=== PATIENT | female | born 1965 | race Two or more races ===

== ENCOUNTER 2021-07-14 08:50 | Inpatient (IN) | payer MEDICAID, OTHER ==
[~2021-07-14] VITALS: Ht 154.9 cm; Wt 65.9 kg
[2021-07-14 09:32] LABS: Urine Bacteria NONE SEEN /hpf (None Seen); Urine Blood Negative /uL (Negative); Urine Specific Gravity 1.037 (1.001-1.035); Urine WBC 1 /hpf (0 - 5)
[2021-07-14] MEDS ORDERED: SODIUM CHLORIDE 0.9% 1,000 ML IV ONE (11:00)
[2021-07-14] MEDS ORDERED: SODIUM CHLORIDE 0.9% 500 ML IVB ONE (11:00)
[2021-07-14] MEDS ORDERED: HYDROmorphone HCL 2 MG/ML VL/or syr IV ONE ×2 (11:00→13:45)
[2021-07-14 11:17] LABS: Potassium 3.4 mmol/L (3.5-5.1)
[2021-07-14 11:21] LABS: Basophils # (auto) 0 10 ^3/uL (0-0.2); Basophils % (auto) 0.3 % (0.0-2.0); Eosinophils # (auto) 0 10 ^3/uL (0-0.8); Hematocrit 43.8 % (36.0-46.0); Lymphocytes # (auto) 1.6 10 ^3/uL (0.4-5.4); Lymphocytes % (auto) 14.7 % (10.0-50.0); Mean Corpuscular Hemoglobin 29.3 pg (28.0-32.0); Mean Corpuscular Hgb Conc. 34.3 g/dL (32.0-36.0); Mean Corpuscular Volume 85.3 fL (80.0-100.0); Monocytes # (auto) 0.5 10 ^3/uL (0-1.3); Monocytes % (auto) 4.8 % (0.0-12.0); Neutrophils # (auto) 8.8 10 ^3/uL (1.6-8.6); Neutrophils % (auto) 80.2 % (37.0-80.0); Nucleated Red Blood Cells % 0.1 %; Red Blood Cells 5.13 10^6/uL (4.0-5.20); Red Cell Distribution Width 12.9 % (11.8-14.3)
[2021-07-14 11:24] LABS: Albumin 3.2 g/dL (3.4-5.0); BUN/Creatinine Ratio 18.6; Calcium 9.5 mg/dL (8.5-10.1); Total Protein 8.2 g/dL (6.4-8.2)
[2021-07-14] MEDS: PROMETHAZINE HCL 25 MG/ML 1ML IV PRN (11:34)
[2021-07-14] MEDS ORDERED: IOHEXOL 300 MG/ML 100ML BOTTLE IJ ONE (11:40)
[2021-07-14 12:02] LABS: Partial Thromboplastin Time 28.1 sec (23.6-33.0)
[2021-07-14 12:06] LABS: Magnesium 2.1 mg/dL (1.6-2.6)
[2021-07-14] MEDS ORDERED: ONDANSETRON HCL 4 MG/2 ML VIAL IV ONE (13:45)
[2021-07-14] MEDS ORDERED: InsuLIN REG 1unit/0.01ml Soln (100units/ml) IV ONE (14:30)
[2021-07-14] MEDS: POTASSIUM CHL 20MEQ/100ML 100 ML IV SCH ×2 (14:44→16:30)
[2021-07-14] MEDS ORDERED: SODIUM CHLORIDE 0.9% 1,000 ML IV SCH (15:15)
[2021-07-14] MEDS ORDERED: DEXTROSE (50%) 50ML SYRG IV PRN (15:15)
[2021-07-14] MEDS ORDERED: NITROGLYCERIN 0.4 MG SL TAB SL PRN (15:15)
[2021-07-14] MEDS ORDERED: LACTATED RINGER'S 2,000 ML IV ONE (15:15)
[2021-07-14] MEDS ORDERED: MORPHINE SULFATE INJ 2 MG/ml SYRG IV PRN (15:15)
[2021-07-14] MEDS ORDERED: cefTRIAXone 1GM/50ML D5W 50 ML IV ONE (15:45)
[2021-07-14] MEDS ORDERED: BUPIVACAINE W/ EPINEPH 0.25% INJ 50ML MDV ONE (15:48)
[2021-07-14] MEDS ORDERED: SUCCINYLCHOLINE CHLORIDE 20 MG/ML 10ML VIAL IV ONE (16:05)
[2021-07-14] MEDS ORDERED: ROCURONIUM 10MG/ML 10ML VIAL IV ONE (16:07)
[2021-07-14] MEDS ORDERED: fentaNYL CITRATE 100 MCG/2 ML VL ONE (16:07)
[2021-07-14] MEDS ORDERED: MIDAZOLAM HCL 2MG/2ML 2ml VIAL (1mg/ml) ONE (16:07)
[2021-07-14] MEDS ORDERED: LACTULOSE 20Gm/30ML SOLN PO PRN (16:30)
[2021-07-14] MEDS ORDERED: hydrALAZINE HCL 20 MG/ML VL IV PRN (16:30)
[2021-07-14] MEDS ORDERED: LORazepam 0.5 MG TAB PO PRN (16:30)
[2021-07-14] MEDS ORDERED: ACETAMINOPHEN 325 MG TAB PO PRN (16:30)
[2021-07-14] MEDS ORDERED: DOCUSATE SOD 100 MG CAP PO PRN (16:30)
[2021-07-14] MEDS ORDERED: PANTOPRAZOLE 40 MG/10 ML VIAL INJ IV ONE (16:30)
[2021-07-14] MEDS ORDERED: PROPOFOL 10 MG/ML 20 ML IV ONE (17:00)
[2021-07-14] MEDS ORDERED: DexAMETHasone SOD PHOS 10MG/1ML VIAL INJ ONE (17:00)
[2021-07-14] MEDS ORDERED: LIDOCAINE 2% (LOCAL ANESTH.) PF 5ml SDV ONE (17:01)
[2021-07-14] MEDS ORDERED: METOCLOPRAMIDE HCL 5MG/ml INJ 2ml VIAL ONE (17:01)
[2021-07-14] MEDS ORDERED: NEOSTIGMINE 1 MG/ML INJ (10mg/10ML VIAL) ONE (17:01)
[2021-07-14] MEDS ORDERED: GLYCOPYRROLATE 0.2 MG/ML 1ML VIAL ONE (17:01)
[2021-07-14] MEDS ORDERED: ceFAZolin 1GM VL ONE (17:49)
[2021-07-14] MEDS ORDERED: ONDANSETRON HCL 4 MG/2 ML VIAL ONE (18:37)
[2021-07-14] MEDS: InsuLIN REG 1unit/0.01ml Soln (100units/ml) SC SCH ×2 (18:45→23:23)
[2021-07-14] MEDS ORDERED: ONDANSETRON HCL 4 MG/2 ML VIAL IV PRN (18:45)
[2021-07-14] MEDS ORDERED: ACCU-CHEK COMFORT CURVE STRIP VI ONE (18:45)
[2021-07-14] MEDS: ACCU-CHEK COMFORT CURVE STRIP VI SCH (18:45)
[2021-07-14] MEDS ORDERED: METOCLOPRAMIDE HCL 5MG/ml INJ 2ml VIAL IV PRN (18:45)
[2021-07-14] MEDS ORDERED: HYDROmorphone HCL 2 MG/ML VL/or syr IV PRN (18:45)
[2021-07-14] MEDS ORDERED: HYDROmorphone HCL 2 MG/ML VL/or syr ONE (18:47)
[2021-07-14] MEDS: metroNIDAZOLE 500MG/100ML 100 ML IV SCH (21:30)
[2021-07-14] MEDS: SODIUM CHLORIDE 0.9% 1,000 ML IV SCH (21:31)
[2021-07-14] MEDS: POTASSIUM CHL 20 Meq TABLET PO SCH (22:00)
[2021-07-14] MEDS: ATORVASTATIN 20 MG TAB PO SCH (22:00)
[2021-07-14 22:02] VITALS: BP 117/70
[2021-07-14] MEDS: INSULIN LANTUS (GLARGINE) 1 /0.01ml (100units/ml) SC SCH (23:22)
[2021-07-14 23:51] LABS: BUN/Creatinine Ratio 15.7; Calcium 8.6 mg/dL (8.5-10.1); Potassium 4.9 mmol/L (3.5-5.1)
[2021-07-15 05:00] VITALS: BP 126/76
[2021-07-15] MEDS: metroNIDAZOLE 500MG/100ML 100 ML IV SCH ×3 (05:26→21:46)
[2021-07-15] MEDS: ACCU-CHEK COMFORT CURVE STRIP VI SCH ×5 (06:13→23:28)
[2021-07-15] MEDS: InsuLIN REG 1unit/0.01ml Soln (100units/ml) SC SCH ×4 (06:23→23:28)
[2021-07-15] MEDS: INSULIN LANTUS (GLARGINE) 1 /0.01ml (100units/ml) SC SCH ×2 (06:24→23:27)
[2021-07-15] MEDS: SODIUM CHLORIDE 0.9% 1,000 ML IV SCH ×2 (06:48→21:06)
[2021-07-15] MEDS: cefTRIAXone 1GM/50ML D5W 50 ML IV SCH (08:22)
[2021-07-15 08:26] LABS: Basophils # (auto) 0 10 ^3/uL (0-0.2); Basophils % (auto) 0.2 % (0.0-2.0); Eosinophils # (auto) 0 10 ^3/uL (0-0.8); Hematocrit 40.1 % (36.0-46.0); Hemoglobin 13.7 g/dL (12.2-16.2); Lymphocytes # (auto) 1.1 10 ^3/uL (0.4-5.4); Lymphocytes % (auto) 6.9 % (10.0-50.0); Mean Corpuscular Hemoglobin 28.8 pg (28.0-32.0); Mean Corpuscular Hgb Conc. 34.2 g/dL (32.0-36.0); Mean Corpuscular Volume 84.2 fL (80.0-100.0); Monocytes # (auto) 0.7 10 ^3/uL (0-1.3); Monocytes % (auto) 4.6 % (0.0-12.0); Neutrophils # (auto) 13.9 10 ^3/uL (1.6-8.6); Neutrophils % (auto) 88.3 % (37.0-80.0); Nucleated Red Blood Cells % 0.1 %; Red Blood Cells 4.75 10^6/uL (4.0-5.20); Red Cell Distribution Width 13.4 % (11.8-14.3); White Blood Cell 15.7 10^3/uL (4.4-10.8)
[2021-07-15 08:41] LABS: Calcium 9.1 mg/dL (8.5-10.1); Chloride 115 mmol/L (98-107); Sodium 142 mmol/L (136-145)
[2021-07-15 08:51] LABS: Alanine Aminotransferase 18 U/L (13-56); Albumin 2.3 g/dL (3.4-5.0); Alkaline Phosphatase 141 U/L (45-117); Anion Gap 9 (5-15); Aspartate Aminotransferase 14 U/L (15-37); BUN/Creatinine Ratio 19.8; Bilirubin, Total 0.3 mg/dL (0.2-1.0); Blood Urea Nitrogen 17 mg/dL (7-18); Carbon Dioxide 18 mmol/L (21-32); Cholesterol 105 mg/dL (< 200); Creatine Kinase IFCC 71 U/L (26-192); GFR African American 87 mL/min; GFR Non-African American 72 mL/min; Glucose 269 mg/dL (74-106); HDL Cholesterol 64 mg/dL (40-59); LDL Cholesterol 33 mg/dL (< 100); Lipase 18 U/L (73-393); Phosphorus 1.6 mg/dL (2.5-4.90); Total Protein 7.2 g/dL (6.4-8.2); Triglycerides 41 mg/dL (< 150); Uric Acid 5.6 mg/dL (2.6-6.0)
[2021-07-15 08:57] LABS: CRP High Sensitivity > 19 mg/dL (< 0.3)
[2021-07-15 09:03] VITALS: BP 114/70
[2021-07-15 09:04] LABS: INR 1.13 (0.9-1.15); Partial Thromboplastin Time 28.2 sec (23.6-33.0)
[2021-07-15] MEDS: ENOXAPARIN SOD 40 MG/0.4 ML SYRINGE SC SCH (09:40)
[2021-07-15] MEDS: PANTOPRAZOLE 40 MG/10 ML VIAL INJ IV SCH (09:40)
[2021-07-15] MEDS: ASPirin 81 mg TAB PO SCH (09:40)
[2021-07-15] MEDS: POTASSIUM CHL 20 Meq TABLET PO SCH ×2 (09:40→21:46)
[2021-07-15 12:45] VITALS: BP 101/61
[2021-07-15 16:39] VITALS: BP 111/70
[2021-07-15] MEDS: ATORVASTATIN 20 MG TAB PO SCH (21:45)
[2021-07-15 22:26] VITALS: BP 116/69
[2021-07-16] MEDS: HYDROcodone-ACET 5/325MG TAB PO PRN ×2 (01:43→18:29)
[2021-07-16] MEDS: metroNIDAZOLE 500MG/100ML 100 ML IV SCH ×3 (06:27→21:46)
[2021-07-16] MEDS: ACCU-CHEK COMFORT CURVE STRIP VI SCH ×4 (06:27→23:34)
[2021-07-16] MEDS: InsuLIN REG 1unit/0.01ml Soln (100units/ml) SC SCH ×4 (06:28→23:34)
[2021-07-16] MEDS: INSULIN LANTUS (GLARGINE) 1 /0.01ml (100units/ml) SC SCH ×2 (06:29→23:32)
[2021-07-16] MEDS: ONDANSETRON HCL 4 MG/2 ML VIAL IV PRN ×2 (06:47→23:47)
[2021-07-16 08:00] VITALS: BP 133/78
[2021-07-16] MEDS: cefTRIAXone 1GM/50ML D5W 50 ML IV SCH (09:35)
[2021-07-16] MEDS: D5W/SOD CHLO 0.9% 1,000 ML IV SCH ×2 (09:35→17:36)
[2021-07-16] MEDS: PANTOPRAZOLE 40 MG/10 ML VIAL INJ IV SCH (09:36)
[2021-07-16] MEDS: ASPirin 81 mg TAB PO SCH (09:36)
[2021-07-16] MEDS: ENOXAPARIN SOD 40 MG/0.4 ML SYRINGE SC SCH (09:36)
[2021-07-16] MEDS: POTASSIUM CHL 20 Meq TABLET PO SCH ×2 (09:36→21:45)
[2021-07-16 12:00] VITALS: BP 122/69
[2021-07-16 16:00] VITALS: BP 128/69
[2021-07-16 21:29] VITALS: BP 120/68
[2021-07-16] MEDS: ATORVASTATIN 20 MG TAB PO SCH (21:45)
[2021-07-17] MEDS: PROMETHAZINE HCL 25 MG/ML 1ML IV PRN ×2 (02:15→08:25)
[2021-07-17] MEDS: D5W/SOD CHLO 0.9% 1,000 ML IV SCH ×3 (02:21→17:50)
[2021-07-17 04:39] VITALS: BP 140/77
[2021-07-17] MEDS: ONDANSETRON HCL 4 MG/2 ML VIAL IV PRN ×3 (05:54→23:26)
[2021-07-17] MEDS: MORPHINE SULFATE INJ 2 MG/ml SYRG IV PRN ×2 (05:54→23:53)
[2021-07-17] MEDS: InsuLIN REG 1unit/0.01ml Soln (100units/ml) SC SCH ×3 (06:03→17:30)
[2021-07-17] MEDS: ACCU-CHEK COMFORT CURVE STRIP VI SCH ×3 (06:04→17:28)
[2021-07-17] MEDS: INSULIN LANTUS (GLARGINE) 1 /0.01ml (100units/ml) SC SCH ×2 (06:04→23:58)
[2021-07-17] MEDS: metroNIDAZOLE 500MG/100ML 100 ML IV SCH ×2 (06:12→13:54)
[2021-07-17 06:30] LABS: Basophils # (auto) 0.1 10 ^3/uL (0-0.2); Basophils % (auto) 0.5 % (0.0-2.0); Eosinophils # (auto) 0.1 10 ^3/uL (0-0.8); Eosinophils % (auto) 0.6 % (0.0-7.0); Hemoglobin 12.4 g/dL (12.2-16.2); Lymphocytes # (auto) 1.7 10 ^3/uL (0.4-5.4); Lymphocytes % (auto) 13.8 % (10.0-50.0); Mean Corpuscular Hemoglobin 29.3 pg (28.0-32.0); Mean Corpuscular Hgb Conc. 35.2 g/dL (32.0-36.0); Mean Corpuscular Volume 83.1 fL (80.0-100.0); Monocytes # (auto) 0.7 10 ^3/uL (0-1.3); Neutrophils # (auto) 9.5 10 ^3/uL (1.6-8.6); Neutrophils % (auto) 79.1 % (37.0-80.0); Nucleated Red Blood Cells % 0.1 %; Red Blood Cells 4.24 10^6/uL (4.0-5.20); Red Cell Distribution Width 13.3 % (11.8-14.3)
[2021-07-17 07:11] LABS: Hematocrit 35.2 % (36.0-46.0)
[2021-07-17] MEDS: cefTRIAXone 1GM/50ML D5W 50 ML IV SCH (08:24)
[2021-07-17] MEDS: PANTOPRAZOLE 40 MG/10 ML VIAL INJ IV SCH (08:24)
[2021-07-17] MEDS: ENOXAPARIN SOD 40 MG/0.4 ML SYRINGE SC SCH (08:24)
[2021-07-17] MEDS: POTASSIUM CHL 20 Meq TABLET PO SCH ×2 (08:25→21:11)
[2021-07-17] MEDS: ASPirin 81 mg TAB PO SCH (08:25)
[2021-07-17 09:00] VITALS: BP 125/75
[2021-07-17 13:00] VITALS: BP 121/76
[2021-07-17] MEDS ORDERED: ERTAPENEM SOD INJ 1 GM in SODIUM CHL 0.9% 50 ML IV ONE (15:45)
[2021-07-17 17:00] VITALS: BP 116/70
[2021-07-17] MEDS: ATORVASTATIN 20 MG TAB PO SCH (21:11)
[2021-07-18] MEDS: ACCU-CHEK COMFORT CURVE STRIP VI SCH ×5 (00:05→23:32)
[2021-07-18] MEDS: InsuLIN REG 1unit/0.01ml Soln (100units/ml) SC SCH ×5 (00:09→23:32)
[2021-07-18] MEDS: D5W/SOD CHLO 0.9% 1,000 ML IV SCH ×3 (03:55→17:04)
[2021-07-18 05:00] VITALS: BP 123/77
[2021-07-18] MEDS: INSULIN LANTUS (GLARGINE) 1 /0.01ml (100units/ml) SC SCH ×2 (06:12→21:12)
[2021-07-18] MEDS: ONDANSETRON HCL 4 MG/2 ML VIAL IV PRN (06:13)
[2021-07-18 08:30] VITALS: BP 143/91
[2021-07-18] MEDS: PANTOPRAZOLE 40 MG/10 ML VIAL INJ IV SCH (09:27)
[2021-07-18] MEDS: ERTAPENEM SOD INJ 1 GM in SODIUM CHL 0.9% 50 ML IV SCH (09:27)
[2021-07-18] MEDS: ENOXAPARIN SOD 40 MG/0.4 ML SYRINGE SC SCH (09:28)
[2021-07-18] MEDS: ASPirin 81 mg TAB PO SCH (09:28)
[2021-07-18] MEDS: POTASSIUM CHL 20 Meq TABLET PO SCH ×2 (09:28→21:10)
[2021-07-18 12:30] VITALS: BP 110/74
[2021-07-18 16:30] VITALS: BP 127/75
[2021-07-18] MEDS: ATORVASTATIN 20 MG TAB PO SCH (21:10)
[2021-07-18 22:00] VITALS: BP 121/73
[2021-07-19] MEDS: D5W/SOD CHLO 0.9% 1,000 ML IV SCH ×3 (03:33→17:15)
[2021-07-19 05:00] VITALS: BP 120/74
[2021-07-19] MEDS: INSULIN LANTUS (GLARGINE) 1 /0.01ml (100units/ml) SC SCH (06:31)
[2021-07-19] MEDS: InsuLIN REG 1unit/0.01ml Soln (100units/ml) SC SCH ×3 (06:31→18:01)
[2021-07-19] MEDS: ACCU-CHEK COMFORT CURVE STRIP VI SCH ×3 (06:32→18:02)
[2021-07-19] MEDS: HYDROcodone-ACET 5/325MG TAB PO PRN (06:32)
[2021-07-19] MEDS ORDERED: METR500T PO (09:04)
[2021-07-19] MEDS ORDERED: CIPR-173 PO (09:04)
[2021-07-19] MEDS ORDERED: HYDR-4902 PO (09:04)
[2021-07-19] MEDS: POTASSIUM CHL 20 Meq TABLET PO SCH (10:00)
[2021-07-19] MEDS: ASPirin 81 mg TAB PO SCH (10:00)
[2021-07-19] MEDS: PANTOPRAZOLE 40 MG/10 ML VIAL INJ IV SCH (10:00)
[2021-07-19] MEDS: ERTAPENEM SOD INJ 1 GM in SODIUM CHL 0.9% 50 ML IV SCH (10:01)
[2021-07-19] MEDS: ENOXAPARIN SOD 40 MG/0.4 ML SYRINGE SC SCH (10:01)
[2021-07-19 13:00] VITALS: BP 127/76
[2021-07-19 17:00] VITALS: BP 136/82
[2021-07-20] MEDS ORDERED: HYDR-4902 PO (08:43)
[2021-07-20] MEDS ORDERED: METR500T PO (08:43)
[2021-07-20] MEDS ORDERED: CIPR-173 PO (08:43)
== END 2021-07-19 20:20 | disposition home or self-care (01) | DRG 710 ==
LOC: ER 08:50 → OVERFLOW 15:08 → CENTRAL 19:25
PROVIDERS: ADMIT Hospitalist; ATTEND Family Medicine
PROC: 0WJG4ZZ Inspection of Peritoneal Cavity, Percutaneous Endoscopic Approach (ICD-10-PCS; 2021-07-14)
PROC: 0DNW0ZZ Release Peritoneum, Open Approach (ICD-10-PCS; 2021-07-14)
PROC: 0DTJ0ZZ Resection of Appendix, Open Approach (ICD-10-PCS; principal; 2021-07-14 16:14)
PROC: 05H933Z Insertion of Infusion Device into Right Brachial Vein, Percutaneous Approach (ICD-10-PCS; 2021-07-18)
PROC: B54MZZA Ultrasonography of Right Upper Extremity Veins, Guidance (ICD-10-PCS; 2021-07-18)
DX: A41.9 Sepsis, unspecified organism (principal); K35.33 Acute appendicitis with perforation, localized peritonitis, and gangrene, with abscess; E66.9 Obesity, unspecified; E78.5 Hyperlipidemia, unspecified; E11.9 Type 2 diabetes mellitus without complications; B96.20 Unspecified Escherichia coli [E. coli] as the cause of diseases classified elsewhere; E87.6 Hypokalemia; K38.1 Appendicular concretions; K66.0 Peritoneal adhesions (postprocedural) (postinfection); R80.9 Proteinuria, unspecified; E86.0 Dehydration; Z20.822 Contact with and (suspected) exposure to COVID-19; Z53.31 Laparoscopic surgical procedure converted to open procedure; Z68.27 Body mass index [BMI] 27.0-27.9, adult
CPT/HCPCS: 36415; 71045; 74177; 80048; 80053; 80061; 81001; 82550; 82728; 82962; 83036; 83615; 83690; 83735; 83880; 84100; 84443; 84484; 84550; 85025; 85379; 85610; 85652; 85730; 86141; 87040; 87070; 87075; 87077; 87086; 87186; 87205; 93005; 93970; 96361; 96374; 96375; 97163; C9113; G0378; J0330; J0690; J0696; J1100; J1335; J1815; J2001; J2250; J2405; J2704; J3480; J3490; J7042